=== PATIENT | female | born 1960 | race Two or more races ===

== ENCOUNTER 2016-08-05 20:46 | Emergency (ER) | payer OTHER ==
[~2016-08-05] VITALS: Ht 162.6 cm; Wt 66.0 kg
[~2016-08-05 20:46] MED LIST: LORA1TAB PO
[2016-08-05 20:51] VITALS: Ht 162.6 cm; Wt 66.0 kg
[2016-08-05] MEDS ORDERED: KETOROLAC 30 MG INJ IV STA (21:35)
[2016-08-05 22:21] LABS: ADD SCAN DIFF NO
[2016-08-05 22:27] LABS: BASOPHILS % 0.2 % (0.0-2.0); EOSINOPHILS % 0.4 % (0.0-7.0); HEMATOCRIT 38.7 % (37.0-47.0); LYMPHOCYTES # 1.3 10^3/ul (0.8-2.9); LYMPHOCYTES % 14.1 % (15.0-51.0); MEAN CORPUSCULAR HGB CONC 33.6 g/dl (32.0-37.0); MEAN CORPUSCULAR VOLUME 83.4 fl (82.0-101.0); MEAN PLATELET VOLUME 10.6 fl (7.4-10.4); MONOCYTE # 0.4 10^3/ul (0.3-0.9); NEUTROPHIL # 7.3 10^3/ul (1.6-7.5); NEUTROPHILS % 80.7 % (39.0-77.0); PLATELET COUNT 233 10^3/UL (140-415); RED BLOOD COUNT 4.64 10^6/ul (4.20-5.40); RED CELL DISTRIBUTION WIDTH 12.9 % (11.5-14.5); WHITE BLOOD COUNT 9.1 10^3/ul (4.8-10.8)
[2016-08-05 22:43] LABS: ALBUMIN 4.1 g/dl (3.3-4.9); ALBUMIN/GLOBULIN RATIO 1.32; BILIRUBIN,INDIRECT 0.2 mg/dl (0-1.1); BILIRUBIN,TOTAL 0.2 mg/dl (0.2-1.3); CALCIUM 9.2 mg/dl (8.4-10.2); CREATININE 0.56 mg/dl (0.44-1.00); TOTAL PROTEIN 7.2 g/dl (6.1-8.1)
[2016-08-05 22:45] LABS: ADD UMIC YES; URINE BILIRUBIN (Dip) NEGATIVE (NEGATIVE); URINE BLOOD (Dip) TRACE (NEGATIVE); URINE COLOR LT. YELLOW (YELLOW); URINE GLUCOSE (Dip) NEGATIVE (NEGATIVE); URINE KETONES (Dip) NEGATIVE (NEGATIVE); URINE LEUKOCYTE ESTERASE (Dip) NEGATIVE (NEGATIVE); URINE NITRITE (Dip) NEGATIVE (NEGATIVE); URINE TOTAL PROTEIN (Dip) NEGATIVE (NEGATIVE); URINE UROBILINOGEN (Dip) 0.2 E.U./dL (0.1-1.0)
[2016-08-05 23:03] LABS: SQUAMOUS EPITHELIAL CELL,UR FEW
[2016-08-05] MEDS: HYDROCODONE/APAP (5/325) TAB PO ONE ×2 (23:17→23:19)
--- NOTE | 2016-08-05 23:29 | RADRPT ---
PROCEDURE: Lumbar spine series CLINICAL INDICATION: Back pain TECHNIQUE: AP lateral and cone lateral views COMPARISON: None available FINDINGS: The visualized spine alignment is normal. No acute fractures or traumatic subluxations are present. Spondylosis is normal. Preservation vertebral body heights and intervertebral disk spaces are note d with the exception of moderate to severe disk space height loss at L5-S1. The bilateral pedicles a re intact and well aligned. No calcifications project over the bilateral renal collecting system. IMPRESSION: 1. No acute fractures or traumatic subluxations. 2. Moderate to severe degenerative endplate and disk changes at L5-S1. RPTAT: HDC .Socorro Coker MD, MD Date Time Electronically viewed and signed by .Socorro Coker MD, on 08/05/2016 23:28 .C/
--- NOTE | 2016-08-05 23:32 | RADRPT ---
PROCEDURE: XR Chest. CLINICAL INDICATION: Chest pain. TECHNIQUE: AP Portable chest. COMPARISON: Chest x-ray 09/05/2015 12:25 a.m. FINDINGS: The soft tissues and bones are normal. No focal infiltrates, masses, or effusions are noted. The m ediastinum and heart are remarkable for mild vascular calcifications of the thoracic aorta.. No pne umothorax is present. IMPRESSION: 1. No radiographic evidence for acute cardiopulmonary disease. 2. Mild atherosclerotic vascular disease RPTAT: HDC .Socorro Coker MD, MD Date Time Electronically viewed and signed by .Socorro Coker MD, on 08/05/2016 23:32 .C/
[2016-08-05] MEDS ORDERED: AZIT250T94 PO (23:57)
[2016-08-05] MEDS ORDERED: TRAM50TA2 PO (23:57)
[2016-08-05] MEDS ORDERED: BENZ100C70 PO (23:57)
--- NOTE | 2016-08-06 00:12 | ERD ---
ER Documentation Chief Complaint Date/Time DATE: 08/06/16 TIME: 00:07 Chief Complaint cough x 3 week, back pain extending to both thighs HPI 56-year-old female with a past medical history of hypothyroidism, diabetes presents to the ED complaining of a dry cough and nasal congestion that started 3 weeks ago. States that she has been taking Robitussin with slight relief of her symptoms. States that she started to have back pain that started 3 weeks ago that radiates down her bilateral buttocks and legs. Reports that she feels generalized weakness. Denies any nausea, vomiting, diarrhea. Denies any heavy lifting or trauma. Denies any chest pain, shortness of breath, abdominal pain, orthopnea, dyspnea on exertion. ROS All systems reviewed and are negative except as per history of present illness. Medications Home Meds Active Scripts Benzonatate* (Tessalon Perle*) 100 Mg Capsule, 100 MG PO Q8H Y for COUGH, #20 CAP Prov:REHAN TORRES PA-C 08/05/16 Tramadol HCl (Tramadol HCl) 50 Mg Tablet, 50 MG PO Q6 Y for PAIN, #20 TAB Prov:REHAN TORRES PA-C 08/05/16 Azithromycin* (Zithromax*) 250 Mg Tablet, 250 MG PO .ZPACK DIRECTED, #6 TAB TAKE 500 MG (2 TABS) THE FIRST DAY THEN 250 MG (1 TAB) DAYS 2-5 Prov:REHAN TORRES PA-C 08/05/16 Lorazepam* (Lorazepam*) 1 Mg Tablet, 1 MG PO BID Y for ANXIETY, #20 TAB Prov:ROSA NAZARIO 09/05/15 Allergies Allergies: Coded Allergies: No Known Allergy (Verified Allergy, Mild, 11/20/07) PMhx/Soc Hx Cardiac Disorders: Yes (HTN) Hx Miscellaneous Medical Probl: Yes (DM, THYROID) Hx Alcohol Use: No Hx Substance Use: No Hx Tobacco Use: No Smoking Status: Never smoker Physical Exam Vitals Vital Signs Date Time Temp Pulse Resp B/P Pulse Ox O2 Delivery O2 Flow Rate FiO2 08/06/16 00:20 98.8 97 16 142/71 98 Room Air 08/05/16 20:51 99.0 116 20 166/86 97 Physical Exam Const: [id number], well-nourished. In no acute distress. Head: Atraumatic, normocephalic Eyes: Normal Conjunctiva without injection. No purulent discharge. PERRL. EOMI ENT: Normal external ear. Ear canal without erythema. Tympanic membrane pearly narayanan without effusion or bulging. Nasal canal clear with normal turbinates. Moist oropharynx without tonsillar exudates. Non-erythematous pharynx. Uvula midline. No drooling. No trismus. Neck: Full range of motion. No meningismus. No cervical lymphadenopathy. Resp: Clear to auscultation bilaterally. No wheezing, rhonchi, rales, or crackles. No accessory muscle use. No retractions. Cardio: Regular rate and rhythm. No murmurs, rubs or gallops. Abd: Soft, non tender, non distended. Normal bowel sounds. No palpable masses. No rebound tenderness. No guarding. Skin: No petechiae or rashes Back: Tenderness to palpation of the L5-S1 region.. No CVA tenderness. Bilateral positive straight leg test. Ext: No cyanosis, or edema. Neur: Awake and alert. Psych: Normal Mood and Affect Result Diagram: 08/05/16214908/05/162149 Results 24 hrs Laboratory Tests Test 08/05/16 21:20 08/05/16 21:50 Urine Color LT. YELLOW Urine Clarity CLEAR Urine pH 6.0 Urine Specific [place] 1.020 Urine Ketones NEGATIVE Urine Nitrite NEGATIVE Urine Bilirubin NEGATIVE Urine Urobilinogen 0.2 E.U./dL Urine Leukocyte Esterase NEGATIVE Urine Microscopic RBC 2-5/HPF Urine Microscopic WBC 0-2/HPF Urine Squamous Epithelial Cells FEW Urine Hemoglobin TRACE Urine Glucose NEGATIVE% Urine Total Protein NEGATIVE White Blood Count 9.110^3/ul Red Blood Count 4.6410^6/ul Hemoglobin 13.0g/dl Hematocrit 38.7% Mean Corpuscular Volume 83.4fl Mean Corpuscular Hemoglobin 28.0pg Mean Corpuscular Hemoglobin Concent 33.6g/dl Red Cell Distribution Width 12.9% Platelet Count 56075^3/UL Mean Platelet Volume 10.6fl Neutrophils % 80.7% Lymphocytes % 14.1% Monocytes % 4.0% Eosinophils % 0.4% Basophils % 0.2% Nucleated Red Blood Cells % 0.0/100WBC Neutrophils # 7.310^3/ul Lymphocytes # 1.310^3/ul Monocytes # 0.410^3/ul Eosinophils # 0.010^3/ul Basophils # 0.010^3/ul Nucleated Red Blood Cells # 0.010^3/ul Sodium Level 135mmol/L Potassium Level 4.0mmol/L Chloride Level 103mmol/L Carbon Dioxide Level 24mmol/L Anion Gap 12 Blood Urea Nitrogen 12mg/dl Creatinine 0.56mg/dl Glucose Level 210mg/dl Calcium Level 9.2mg/dl Total Bilirubin 0.2mg/dl Direct Bilirubin 0.00mg/dl Indirect Bilirubin 0.2mg/dl Aspartate Amino Transf (AST/SGOT) 19IU/L Alanine Aminotransferase (ALT/SGPT) 29IU/L Alkaline Phosphatase 65IU/L Total Protein 7.2g/dl Albumin 4.1g/dl Globulin 3.10g/dl Albumin/Globulin Ratio 1.32 Lipase 43U/L Current Medications Medications (Trade) Dose Ordered Sig/Jasvir Route PRN Reason Start Time Stop Time Status Last Admin Dose Admin Ketorolac Tromethamine (Toradol) 30 mg ONCE STAT IV 08/05/16 21:35 08/05/16 21:37 DC 08/05/16 21:54 Acetaminophen/ Hydrocodone Bitart ([place] (5/325)) 1 tab ONCE ONCE PO 08/05/16 23:00 08/05/16 23:01 DC Procedures/MDM This is a 56-year-old female with a past medical history of hypothyroidism, diabetes presents the ED complaining of intermittent dry cough that started 3 weeks ago as well as bilateral back pain radiating down her thighs. Patient is afebrile and nontoxic-appearing. A chest x-ray, lumbar x-ray, CBC, CMP, lipase , Accu-Chek was ordered to further evaluate patient. Patient was given ketorolac 30 mg IV, Sam[place] with improvement of her symptoms. CBC: No leukocytosis. No e/o of systemic infection. No e/o anemia. CMP: No e/o severe acidosis, alkalosis, renal failure, live disease. Glucose 210 Lipase within normal limits. Urine: No leukocyte esterase, no nitrites, no hematuria. PROCEDURE: XR Chest. CLINICAL INDICATION: Chest pain. TECHNIQUE: AP Portable chest. COMPARISON: Chest x-ray 09/05/2015 12:25 a.m. FINDINGS: The soft tissues and bones are normal. No focal infiltrates, masses, or effusions are noted. The mediastinum and heart are remarkable for mild vascular calcifications of the thoracic aorta.. No pneumothorax is present. IMPRESSION: 1. No radiographic evidence for acute cardiopulmonary disease. 2. Mild atherosclerotic vascular disease PROCEDURE: Lumbar spine series CLINICAL INDICATION: Back pain TECHNIQUE: AP lateral and cone lateral views COMPARISON: None available FINDINGS: The visualized spine alignment is normal. No acute fractures or traumatic subluxations are present. Spondylosis is normal. Preservation vertebral body heights and intervertebral disk spaces are noted with the exception of moderate to severe disk space height loss at L5-S1. The bilateral pedicles are intact and well aligned. No calcifications project over the bilateral renal collecting system. IMPRESSION: 1. No acute fractures or traumatic subluxations. 2. Moderate to severe degenerative endplate and disk changes at L5-S1. This patient presents to the ED with symptoms consistent with bronchitis. Patient is afebrile and has normal vital signs. Patient's physical exam include lungs which were clear to auscultation and a normal pulse oximetry. There is a low suspicion for pneumonia, pneumothorax, mononucleosis, pulmonary embolism, epiglottitis, otitis media, otitis externa, viral/strep pharyngitis, sinusitis, peritonsillar abscess, mastoiditis, retropharyngeal abscess, meningitis, sepsis, acute abdomen or other emergent conditions. Patient's pain could likely be derived from the moderate to severe degenerative endplate and disc changes at L5 and L S1. Muscle strength 5/5. No weakness noted. Patient has bilateral positive straight leg test, patient could also have back pain with sciatica. Patient is ambulating here in the ED without difficulty. Denies saddle anesthesia, numbness or tingling, urine or bowel incontinence, weakness. Low suspicion for cauda equina syndrome, cord compression, nephrolithiasis, aortic aneurysm, aortic dissection, epidural abscess, spinal hematoma, malignancy, pyelonephritis, or other emergent conditions. Discharge medications: Tessalon Perles, Tramadol, Zithromax Patient was instructed to return to the ED for any new or worsening symptoms. They should otherwise follow up with the primary care provider within 1-2 days. The patient's questions were answered at the time of discharge. Patient understood and agreed with discharge management. Departure Diagnosis: Primary Impression: Back pain Back pain location: back pain in unspecified location Chronicity: unspecified Back pain laterality: unspecified Qualified Code: M54.9 - Back pain, unspecified back location, unspecified back pain laterality, unspecified chronicity Additional Impression: Cough Condition: Stable Patient Instructions: Back Pain (Acute Or Chronic), Bronchitis, Antiobiotic Treatment (Adult), Back Pain W/ Sciatica Referrals: [facility] YOU HAVE RECEIVED A MEDICAL SCREENING EXAM AND THE RESULTS INDICATE THAT YOU DO NOT HAVE A CONDITION THAT REQUIRES URGENT TREATMENT IN THE EMERGENCY DEPARTMENT. FURTHER EVALUATION AND TREATMENT OF YOUR CONDITION CAN WAIT UNTIL YOU ARE SEEN IN YOUR DOCTORS OFFICE WITHIN THE NEXT 1-2 DAYS. IT IS YOUR RESPONSIBILITY TO MAKE AN APPOINTMENT FOR FOLOW-UP CARE. IF YOU HAVE A PRIMARY DOCTOR --you should call your primary doctor and schedule an appointment IF YOU DO NOT HAVE A PRIMARY DOCTOR YOU CAN CALL OUR PHYSICIAN REFERRAL HOTLINE AT IF YOU CAN NOT AFFORD TO SEE A PHYSICIAN YOU CAN CHOSE FROM THE FOLLOWING [facility] [address] [facility] [address] [facility] [address] [facility] [address] [facility] [address] [facility]. [facility]. [address] [facility]. [facility] YOU HAVE RECEIVED A MEDICAL SCREENING EXAM AND THE RESULTS INDICATE THAT YOU DO NOT HAVE A CONDITION THAT REQUIRES URGENT TREATMENT IN THE EMERGENCY DEPARTMENT. FURTHER EVALUATION AND TREATMENT OF YOUR CONDITION CAN WAIT UNTIL YOU ARE SEEN IN YOUR DOCTORS OFFICE WITHIN THE NEXT 1-2 DAYS. IT IS YOUR RESPONSIBILITY TO MAKE AN APPOINTMENT FOR FOLOW-UP CARE. IF YOU HAVE A PRIMARY DOCTOR --you should call your primary doctor and schedule and appointment IF YOU DO NOT HAVE A PRIMARY DOCTOR YOU CAN CALL OUR PHYSICIAN REFERRAL HOTLINE AT . IF YOU CAN NOT AFFORD TO SEE A PHYSICIAN YOU CAN CHOSE FROM THE FOLLOWING [facility]: [facility] [address] [place] [address] [facility] [address] [place] [address] [facility] [address] [place] [address] [facility] Additional Instructions: Call your primary care doctor TOMORROW for an appointment during the next 1-2 days.See the doctor sooner or return here if your condition worsens before your appointment time. REHAN TORRES PA-C Aug 06, 2016 00:12
[2016-08-06 00:20] VITALS: BP 142/71; PULSE 97; RESP 16; TEMP 98.8
== END 2016-08-06 00:25 | disposition home or self-care (01) ==
LOC: FTE 20:46
DX: M54.5 Low back pain (principal); E11.9 Type 2 diabetes mellitus without complications; E03.9 Hypothyroidism, unspecified; I10 Essential (primary) hypertension
CPT/HCPCS: 36415; 71010; 72100; 80053; 81001; 83690; 85025; 96374; 99284; J1885; 81003

== ENCOUNTER 2018-01-04 23:48 | Emergency (ER) | END 2018-01-05 02:04 | disposition home or self-care (01) ==

== ENCOUNTER 2018-06-15 19:56 | Emergency (ER) | payer OTHER ==
[~2018-06-15] VITALS: Wt 64.5 kg
[~2018-06-15 19:56] MED LIST changes: +CLON-379 PO; -LORA1TAB PO
[2018-06-15 20:08] VITALS: Wt 64.5 kg
--- NOTE | 2018-06-15 21:51 | ERD ---
ER Documentation Chief Complaint Chief Complaint L side AP rad to back x2.5mo; worse w food. L side NG, neck pain. no NVD HPI 58-year-old female presenting with left flank pain that has been intermittent for the past 2 months. It is sometimes worse with eating. It is also sometimes worse with movement. She describes it as a sharp, aching pain. Currently she has no pain. She also complains of chronic intermittent left-sided headache and neck pain but currently has none of the symptoms. She denies any fever, chills, hemoptysis, coughing, nausea, vomiting, hematochezia, or melena. No abdominal pain at this time. Prior to her symptoms starting, she did have a prolonged course of coughing with respiratory illness that has resolved. ROS All systems reviewed and are negative except as per history of present illness. Medications Home Meds Active Scripts Clonidine Hcl* (Clonidine Hcl*) 0.1 Mg Tab, 0.1 MG PO TID, #20 TAB Prov:ROSA NAZARIOYelena 01/05/18 Allergies Allergies: Coded Allergies: No Known Allergy (Unverified , 01/05/18) PMhx/Soc Hx Cardiac Disorders: Yes (HTN) Hx Miscellaneous Medical Probl: Yes (DM, THYROID) Hx Alcohol Use: No Hx Substance Use: No Hx Tobacco Use: No Smoking Status: Never smoker FmHx Family History: No diabetes Physical Exam Vitals Vital Signs Date Temp Pulse Resp B/P (MAP) Pulse Ox O2 O2 Flow FiO2 Time Delivery Rate 06/15/18 97.4 91 20 180/78 97 20:08 (112) Physical Exam Const: No acute distress Head: Atraumatic Eyes: Normal Conjunctiva ENT: Normal External Ears, Nose and Mouth. Neck: Full range of motion. No meningismus. Chest wall: Left lateral lower rib tenderness to palpation with no step-offs. No crepitus. Resp: Clear to auscultation bilaterally Cardio: Regular rate and rhythm, no murmurs. 2+ distal pulses in all 4 extremities Abd: Soft, non tender, non distended. Normal bowel sounds Skin: No petechiae or rashes Back: No midline or flank tenderness Ext: No cyanosis, or edema Neur: Awake and alert Psych: Normal Mood and Affect Result Diagram: 06/15/18210106/15/182101 Results 24 hrs Laboratory Tests Test 3/6/19 21:02 White Blood Count 7.8 10^3/ul Red Blood Count 4.45 10^6/ul Hemoglobin 12.4 g/dl Hematocrit 37.5 % Mean Corpuscular Volume 84.3 fl Mean Corpuscular Hemoglobin 27.9 pg Mean Corpuscular Hemoglobin Concent 33.1 g/dl Red Cell Distribution Width 12.4 % Platelet Count 229 10^3/UL Mean Platelet Volume 10.7 fl Immature Granulocytes % 0.500 % Neutrophils % 54.0 % Lymphocytes % 38.9 % Monocytes % 4.5 % Eosinophils % 1.7 % Basophils % 0.4 % Nucleated Red Blood Cells % 0.0 /100WBC Immature Granulocytes # 0.040 10^3/ul Neutrophils # 4.2 10^3/ul Lymphocytes # 3.1 10^3/ul Monocytes # 0.4 10^3/ul Eosinophils # 0.1 10^3/ul Basophils # 0.0 10^3/ul Nucleated Red Blood Cells # 0.0 10^3/ul Urine Color YELLOW Urine Clarity CLEAR Urine pH 5.0 Urine Specific [place] 1.029 Urine Ketones TRACE mg/dL Urine Nitrite NEGATIVE mg/dL Urine Bilirubin NEGATIVE mg/dL Urine Urobilinogen 1+ mg/dL Urine Leukocyte Esterase 1+ Ester/ul Urine Microscopic RBC 2 /HPF Urine Microscopic WBC 4 /HPF Urine Mucus FEW /HPF Urine Hemoglobin NEGATIVE mg/dL Urine Glucose NEGATIVE mg/dL Urine Total Protein NEGATIVE mg/dl Sodium Level 139 mmol/L Potassium Level 4.0 mmol/L Chloride Level 101 mmol/L Carbon Dioxide Level 27 mmol/L Anion Gap 11 Blood Urea Nitrogen 24 mg/dl Creatinine 0.61 mg/dl Est Glomerular Filtrat Rate mL/min > 60 mL/min Glucose Level 185 mg/dl Calcium Level 9.7 mg/dl Total Bilirubin 0.1 mg/dl Direct Bilirubin 0.00 mg/dl Indirect Bilirubin 0.1 mg/dl Aspartate Amino Transf (AST/SGOT) 21 IU/L Alanine Aminotransferase (ALT/SGPT) 26 IU/L Alkaline Phosphatase 57 IU/L Total Protein 7.2 g/dl Albumin 4.2 g/dl Globulin 3.00 g/dl Albumin/Globulin Ratio 1.40 Lipase 83 U/L Procedures/MDM EMERGENT LABS AND DIAGNOSTIC STUDIES: Lab Results above were reviewed and interpreted by me. CBC: no anemia or evidence of infection BMP: No evidence of electrolyte abnormality, renal failure, hypoglycemia Radiology Results as interpreted by Radiology below were reviewed by Lore Hector MD: Chest x-ray shows no acute abnormalities Initial Nursing notes reviewed. Previous Medical Records requested via the Electronic Health Record. EMERGENCY DEPARTMENT COURSE / MEDICAL DECISION MAKING: Patient is presenting with left flank pain that has been chronic for the past 2 months. It seems to be more chest wall pain as it is reproducible on exam. Labs not show any significant abnormalities. Chest x-ray did not show any concerning abnormalities. Do not suspect ACS, pulmonary embolism, or aortic dissection. I feel the patient is stable for discharge with continued outpatient follow-up. [id number] NSAIDs recommended for pain control. Return precautions discussed. Patient's blood pressure was elevated (>120/80) but appears stable without evidence of hypertensive emergency or urgency. The patient was counseled about the risks of hypertension and urged to pursue outpatient monitoring and therapy within a week with their primary care physician. Departure Diagnosis: Primary Impression: Rib pain on left side Additional Impression: Chest wall pain Condition: Stable Patient Instructions: Chest Wall Strain JAIMIE HECTOR MD Jun 15, 2018 21:51
[2018-06-15 22:56] VITALS: BP 163/78; PULSE 67; RESP 16
== END 2018-06-15 21:55 | disposition home or self-care (01) ==
LOC: E/R 19:56
DX: R07.81 Pleurodynia (principal); R07.89 Other chest pain; I10 Essential (primary) hypertension; E11.9 Type 2 diabetes mellitus without complications
CPT/HCPCS: 36415; 71045; 80053; 81001; 83690; 85025